=== PATIENT | female | born 2000 | race African-American/Black ===

== ENCOUNTER 2019-04-24 10:45 | Emergency (ER) | payer MEDICAID ==
[2019-04-24] MEDS ORDERED: IBUPROFEN 800 MG TABLET PO ONE (11:25)
--- NOTE | 2019-04-24 11:26 | ER Document Report ---
ED Medical Screen (RME) - General Chief Complaint: Pelvic Pain Stated Complaint: PELVIC PAIN Time Seen by Provider: 04/24/19 11:22 Primary Care Provider: UNRULY DESIR MD [Primary Care Provider] - Follow up as needed Mode of Arrival: Ambulatory Information source: Patient Notes: 18-year-old female with history of lupus presents with complaints of bilateral pelvic pain behind her hip bone and low back pain that started last night. Reports she was in so much pain she fell asleep without taking her amitriptyline. Has not taken anything for pain today. Denies vaginal discharge recently, denies fever vomiting diarrhea. Denies pain with void. Reports she has an IUD in. Reports she has one sexual partner does not use condoms. I have greeted and performed a rapid initial assessment of this patient. A comprehensive ED assessment and evaluation of the patient, analysis of test results and completion of the medical decision making process will be conducted by additional ED providers. Dictation of this chart was performed using voice recognition software; therefore, there may be some unintended grammatical errors. TRAVEL OUTSIDE OF THE [place] IN LAST 30 DAYS: No - Related Data Allergies/Adverse Reactions: morphine [Morphine] Allergy (Verified 04/24/19 11:18) promethazine HCl [From Phenergan] Allergy (Verified 04/24/19 11:18) Past Medical History - Social History Chew tobacco use (# tins/day): No Frequency of alcohol use: Occasional Drug Abuse: None Endocrine Medical History: Reports: Hx Hyperthyroidism - Thyroid functions are being followed at this time but there is no treatment. - Immunizations Immunizations up to date: Yes Hx Diphtheria, Pertussis, Tetanus Vaccination: Yes Physical Exam - Vital signs Vitals: Temp Pulse Resp BP Pulse Ox 98.0 F 82 20 120/79 100 04/24/19 10:56 04/24/19 10:56 04/24/19 10:56 04/24/19 10:56 04/24/19 10:56 Course - Vital Signs Vital signs: Temp Pulse Resp BP Pulse Ox 98.0 F 82 20 120/79 100 04/24/19 10:56 04/24/19 10:56 04/24/19 10:56 04/24/19 10:56 04/24/19 10:56 Doctor's Discharge - Discharge Referrals: UNRULY DESIR MD [Primary Care Provider] - Follow up as needed
[2019-04-24 12:10] LABS: ABSOLUTE EOSINOPHILS # (AUTO) 0.1 10^3/uL (0.0-0.6); ABSOLUTE LYMPHOCYTES (AUTO) 1.8 10^3/uL (0.5-4.7); ABSOLUTE MONOCYTES (AUTO) 0.5 10^3/uL (0.1-1.4); ABSOLUTE NEUT (AUTO) 3.4 10^3/uL (1.7-8.2); BASOPHILS % (AUTO) 0.6 % (0-2); EOSINOPHILS % (AUTO) 1.6 % (0-6); HEMATOCRIT 40.6 % (36.0-47.0); HEMOGLOBIN 13.6 g/dL (12.0-15.5); LYMPHOCYTES % (AUTO) 31.3 % (13-45); MEAN CORPUSCULAR HEMOGLOBIN 29.6 pg (27.0-33.4); MEAN CORPUSCULAR HGB CONC 33.6 g/dL (32.0-36.0); MEAN CORPUSCULAR VOLUME 88 fl (80-97); MONOCYTES % (AUTO) 7.8 % (3-13); PLATELET COUNT 262 10^3/uL (150-450); RED BLOOD COUNT 4.61 10^6/uL (3.72-5.28); RED CELL DISTRIBUTION WIDTH 13.3 % (11.5-14.0); SEGMENTED NEUTROPHILS % (AUTO) 58.7 % (42-78); TOTAL CELLS COUNTED % (AUTO) 100 %; WHITE BLOOD COUNT 5.8 10^3/uL (4.0-10.5)
[2019-04-24 12:32] LABS: ALBUMIN 4.8 g/dL (3.7-5.6); ALKALINE PHOSPHATASE 71 U/L (50-135); ANION GAP 11 (5-19); ASPARTATE AMINO TRANSFERASE 24 U/L (5-30); BILIRUBIN,DIRECT 0.1 mg/dL (0.0-0.4); BILIRUBIN,TOTAL 0.5 mg/dL (0.2-1.3); BLOOD UREA NITROGEN 9 mg/dL (7-20); CALCIUM 9.8 mg/dL (8.4-10.2); CARBON DIOXIDE 27 mmol/L (22-30); CHLORIDE 103 mmol/L (98-107); GLUCOSE 90 mg/dL (75-110); TOTAL PROTEIN 7.9 g/dL (6.3-8.2)
[2019-04-24 12:42] LABS: APPEARANCE,URINE CLEAR; BILIRUBIN,URINE NEGATIVE (NEGATIVE); COLOR,URINE STRAW; GLUCOSE, URINE NEGATIVE (NEGATIVE); KETONES,URINE NEGATIVE (NEGATIVE); LEUKOCYTE ESTERASE,URINE NEGATIVE (NEGATIVE); NITRITE,URINE NEGATIVE (NEGATIVE); PROTEIN,URINE NEGATIVE (NEGATIVE); URINE SPECIFIC GRAVITY 1.003; UROBILINOGEN,URINE NEGATIVE mg/dL (<2.0)
[2019-04-24] MEDS ORDERED: HYDROCODONE/ACETAMINOPHEN 5-325 MG TABLET PO ONE (13:14)
[2019-04-24] MEDS ORDERED: ONDANSETRON 4 MG TAB.RAPDIS PO ONE (13:14)
--- NOTE | 2019-04-24 14:55 | RADIOLOGY REPORT (SQ) ---
EXAM DESCRIPTION: U/S NON OB PEL TV W/DOPPLER COMPLETED DATE/TIME: 04/24/2019 2:34 pm REASON FOR STUDY: pelvic pain/hx cysts COMPARISON: None. TECHNIQUE: Dynamic and static grayscale images acquired of the pelvis via transvaginal approach and recorded on PACS. Additional selected color Doppler and spectral images recorded. LIMITATIONS: None. FINDINGS: UTERUS: The uterus measures 7.9 x 5.1 x 3.6 cm. The echotexture of the myometrium is homo geneous. ENDOMETRIAL STRIPE: There is an IUD in place. CERVIX: No nabothian cysts. RIGHT OVARY AND DOPPLER: The right ovary measures 4.2 x 3.1 x 2.7 cm. There is a cyst or dominant fo llicle in the right ovary that measures 2.1 x 1.7 x 1.7 cm. On color Doppler there is intact arteria l flow and venous outflow within the ovarian stroma. LEFT OVARY AND DOPPLER: The left ovary measures 4.7 x 2.5 x 1.7 cm. On Doppler there is intact arter ial inflow and venous outflow within the ovarian stroma. FREE FLUID: Moderate amount of free fluid. OTHER: No other finding. IMPRESSION: 1. Moderate amount of free fluid in the pelvis; the fluid appears simple. 2. IUD in place and in proper position. 3. Dominant follicle in the left ovary. No evidence of ovarian torsion. TECHNICAL DOCUMENTATION: JOB ID: [id number] [employer]- All Rights Reserved Rev-12/16 Reading location - IP/workstation name: [email or web address]
--- NOTE | 2019-04-24 15:00 | ER Document Report ---
ED General - General Chief Complaint: Pelvic Pain Stated Complaint: PELVIC PAIN Time Seen by Provider: 04/24/19 11:15 Primary Care Provider: UNRULY DESIR MD [ACTIVE STAFF] - Follow up as needed Mode of Arrival: Ambulatory Information source: Patient TRAVEL OUTSIDE OF THE [place] IN LAST 30 DAYS: No - HPI Notes: Patient presents with bilateral lower abdominal pelvic pain that started yesterday evening. It is constant. It is moderate. It is crampy in nature. It goes to the lower back. She states it feels similar to when she had a ruptured ovarian cyst in the past. She denies any vaginal discharge or bleeding. She states she has not read by cyclic transmitted disease. She has had no vomiting fever or rashes. The pain is worse with movement and better with rest. - Related Data Allergies/Adverse Reactions: morphine [Morphine] Allergy (Verified 04/24/19 11:18) promethazine HCl [From Phenergan] Allergy (Verified 04/24/19 11:18) Past Medical History - General Information source: Patient - Social History Smoking Status: Never Smoker Chew tobacco use (# tins/day): No Frequency of alcohol use: Occasional Drug Abuse: None Family History: Malignancy, Other - FATHER WITH COLON CA Patient has suicidal ideation: No Patient has homicidal ideation: No Endocrine Medical History: Reports: Hx Hyperthyroidism - Thyroid functions are being followed at this time but there is no treatment. - Immunizations Immunizations up to date: Yes Hx Diphtheria, Pertussis, Tetanus Vaccination: Yes Review of Systems - Review of Systems Constitutional: denies: Chills, Fever Cardiovascular: denies: Palpitations, Dyspnea Respiratory: denies: Cough, Short of breath -: Yes All other systems reviewed and negative Physical Exam - Vital signs Vitals: Temp Pulse Resp BP Pulse Ox 98.0 F 82 20 120/79 100 04/24/19 10:56 04/24/19 10:56 04/24/19 10:56 04/24/19 10:56 04/24/19 10:56 Interpretation: Normal - General General appearance: Appears well, Alert - HEENT Head: Normocephalic, Atraumatic Eyes: Normal Pupils: PERRL - Respiratory Respiratory status: No respiratory distress Chest status: Nontender Breath sounds: Normal Chest palpation: Normal - Cardiovascular Rhythm: Regular Heart sounds: Normal auscultation Murmur: No - Abdominal Inspection: Normal Distension: No distension Bowel sounds: Normal Tenderness: Tender - Bilateral lower quadrants are tender to palpation. No rebound or guarding. Organomegaly: No organomegaly - Back Back: Normal, Nontender - Extremities General upper extremity: Normal inspection, Nontender, Normal color, Normal ROM, Normal temperature General lower extremity: Normal inspection, Nontender, Normal color, Normal ROM, Normal temperature, Normal weight bearing. No: Jayde's sign - Neurological Neuro grossly intact: Yes Cognition: Normal Orientation: AAOx4 Sumeet Coma Scale Eye Opening: Spontaneous Sumeet Coma Scale Verbal: Oriented Hostetter Coma Scale Motor: Obeys Commands Hostetter Coma Scale Total: 15 Speech: Normal Motor strength normal: LUE, RUE, LLE, RLE Sensory: Normal - Psychological Associated symptoms: Normal affect, Normal mood - Skin Skin Temperature: Warm Skin Moisture: Dry Skin Color: Normal Course - Re-evaluation Re-evalutation: 04/24/19 14:58 Ultrasound shows free fluid which would be consistent with a ruptured cyst. Patient states this does feel like a previous ruptured cyst. Her tenderness is not such that I feel she has a surgical abdomen. She has no white count or fever. I do not feel that her work-up is consistent with appendicitis. She will however, be given abdominal pain precautions. - Vital Signs Vital signs: Temp Pulse Resp BP Pulse Ox 98.0 F 82 20 120/79 100 04/24/19 10:56 04/24/19 10:56 04/24/19 10:56 04/24/19 10:56 04/24/19 10:56 - Laboratory Result Diagrams: 04/24/19 11:50 04/24/19 11:50 - Diagnostic Test Radiology reviewed: Image reviewed, Reports reviewed Discharge - Discharge Clinical Impression: Ruptured ovarian cyst Condition: Stable Disposition: HOME, SELF-CARE Instructions: Pelvic Pain ([facility]) Additional Instructions: Please follow-up with either your primary care doctor or your FURNITURE MOVER as soon as possible Prescriptions: Hydrocodone/Acetaminophen [Iraan 5-325 mg Tablet] 1 tab PO Q6 PRN 3 Days #12 tablet PRN Reason: Forms: Parent Work Note Referrals: UNRULY DESIR MD [ACTIVE STAFF] - Follow up in 3-5 days
[2019-04-24 15:03] LABS: CHLAM PCR NOT DETECTED (NOT DETECT)
[2019-04-24 15:33] VITALS: BP 112/70
== END 2019-04-24 15:31 | disposition home or self-care (01) ==
LOC: ER 10:45
DX: N83.201 Unspecified ovarian cyst, right side (principal); R10.2 Pelvic and perineal pain; M54.5 Low back pain; R10.813 Right lower quadrant abdominal tenderness; R10.814 Left lower quadrant abdominal tenderness; R18.8 Other ascites; Z88.5 Allergy status to narcotic agent; Z88.8 Allergy status to other drugs, medicaments and biological substances
CPT/HCPCS: 99284; 36415; 85025; 81025; 80053; 81001; 87491; 87591; 76830; 93976; J3490; S0119

== ENCOUNTER 2020-01-27 12:53 | Outpatient (CLI) | payer MEDICAID ==
[2020-01-27 13:48] LABS: BACTERIA (WET MOUNT) 4+ BACTERIA SEEN; EPITHELIALS (WET MOUNT) 3+ EPITHELIALS SEEN; T.VAGINALIS (WET MOUNT) NO TRICHOMONAS SEEN; WBCS (WET MOUNT) 2+ WBCS SEEN; YEAST (WET MOUNT) NO YEAST SEEN
[2020-01-27 13:48] LABS: APPEARANCE,URINE CLEAR; BILIRUBIN,URINE NEGATIVE (NEGATIVE); COLOR,URINE COLORLESS; GLUCOSE, URINE NEGATIVE (NEGATIVE); KETONES,URINE NEGATIVE (NEGATIVE); LEUKOCYTE ESTERASE,URINE NEGATIVE (NEGATIVE); NITRITE,URINE NEGATIVE (NEGATIVE); PROTEIN,URINE NEGATIVE (NEGATIVE); UROBILINOGEN,URINE NEGATIVE mg/dL (<2.0)
[2020-01-27 14:01] LABS: URINE AMPHETAMINES SCREEN NEGATIVE; URINE BARBITURATES SCREEN NEGATIVE; URINE BENZODIAZEPINES SCREEN NEGATIVE; URINE COCAINE SCREEN NEGATIVE; URINE MARIJUANA (THC) SCREEN NEGATIVE; URINE METHADONE SCREEN NEGATIVE; URINE PHENCYCLIDINE SCREEN NEGATIVE
[2020-01-27] MEDS ORDERED: HYDROXYZINE PAMOATE 50 MG CAPSULE PO ONE (14:16)
[2020-01-27] MEDS ORDERED: ACETAMINOPHEN 325 MG TABLET PO ONE (14:16)
[2020-01-27] MEDS ORDERED: HYDROXYZINE PAMOATE 50 MG CAPSULE ONE (14:21)
[2020-01-27] MEDS ORDERED: ACETAMINOPHEN 325 MG TABLET ONE (14:21)
--- NOTE | 2020-01-27 14:27 | RADIOLOGY REPORT (SQ) ---
EXAM DESCRIPTION: U/S OB LIMITED IMAGES COMPLETED DATE/TIME: 01/27/2020 1:48 pm REASON FOR STUDY: cervical length Cramping. COMPARISON: None. TECHNIQUE: Limited transabdominal grayscale ultrasound for evaluation of specific requested obstetri marely parameters. LIMITATIONS: None. FINDINGS: CERVICAL LENGTH: 3.2 cm. Appears closed by transabdominal technique. TASHA: 7.3 cm. LVP: 3.8 x 2.1 cm FHR: 124 beats per minute. PRESENTATION: Vertex. PLACENTA: Anterior ANATOMY: Not assessed OTHER: EGA: 24 weeks 6 days. IMPRESSION: LIMITED OBSTETRICAL ULTRASOUND WITH MEASURED PARAMETERS DELINEATED ABOVE. Trimester of : Second trimester - 13 weeks 1 day to 27 weeks 6 days. TECHNICAL DOCUMENTATION: JOB ID: [id number] [employer]- All Rights Reserved Reading location - IP/workstation name: [email or web address]
[2020-01-27 15:13] LABS: CHLAM PCR NOT DETECTED (NOT DETECT)
== END 2020-01-27 15:34 | disposition home or self-care (01) ==
LOC: LC 12:53
PROVIDERS: ATTEND Obstetrics & Gynecology Gynecology
DX: O26.892 Other specified pregnancy related conditions, second trimester (principal); Z3A.26 26 weeks gestation of pregnancy
CPT/HCPCS: 87210; 81001; 80307; 87491; 87591; 76815; 59899; Q0114; J3490 ×2

== ENCOUNTER 2020-02-21 12:48 | Outpatient (CLI) | payer MEDICAID ==
[2020-02-21 13:31] LABS: APPEARANCE,URINE CLEAR; BILIRUBIN,URINE NEGATIVE (NEGATIVE); COLOR,URINE STRAW; GLUCOSE, URINE NEGATIVE (NEGATIVE); KETONES,URINE NEGATIVE (NEGATIVE); LEUKOCYTE ESTERASE,URINE NEGATIVE (NEGATIVE); NITRITE,URINE NEGATIVE (NEGATIVE); PROTEIN,URINE NEGATIVE (NEGATIVE); URINE SPECIFIC GRAVITY 1.006; UROBILINOGEN,URINE NEGATIVE mg/dL (<2.0)
[2020-02-21 13:54] LABS: URINE AMPHETAMINES SCREEN NEGATIVE; URINE BARBITURATES SCREEN NEGATIVE; URINE BENZODIAZEPINES SCREEN NEGATIVE; URINE COCAINE SCREEN NEGATIVE; URINE MARIJUANA (THC) SCREEN NEGATIVE; URINE METHADONE SCREEN NEGATIVE; URINE PHENCYCLIDINE SCREEN NEGATIVE
== END 2020-02-21 13:58 | disposition home or self-care (01) ==
LOC: LC 12:48
PROVIDERS: ATTEND Obstetrics & Gynecology Gynecology
DX: Z34.83 Encounter for supervision of other normal pregnancy, third trimester (principal); Z3A.28 28 weeks gestation of pregnancy
CPT/HCPCS: 59025; 81001; 80307; Q0114

== ENCOUNTER 2020-03-01 19:35 | Outpatient (CLI) | payer MEDICAID ==
[2020-03-01 20:24] LABS: APPEARANCE,URINE CLEAR; BILIRUBIN,URINE NEGATIVE (NEGATIVE); COLOR,URINE STRAW; GLUCOSE, URINE NEGATIVE (NEGATIVE); KETONES,URINE NEGATIVE (NEGATIVE); LEUKOCYTE ESTERASE,URINE NEGATIVE (NEGATIVE); NITRITE,URINE NEGATIVE (NEGATIVE); PROTEIN,URINE NEGATIVE (NEGATIVE); URINE SPECIFIC GRAVITY 1.002; UROBILINOGEN,URINE NEGATIVE mg/dL (<2.0)
[2020-03-01 20:37] LABS: URINE AMPHETAMINES SCREEN NEGATIVE; URINE BARBITURATES SCREEN NEGATIVE; URINE BENZODIAZEPINES SCREEN NEGATIVE; URINE COCAINE SCREEN NEGATIVE; URINE MARIJUANA (THC) SCREEN NEGATIVE; URINE METHADONE SCREEN NEGATIVE; URINE PHENCYCLIDINE SCREEN NEGATIVE
[2020-03-01] MEDS ORDERED: RINGERS SOLUTION,LACTATED 1,000 ML IV ONE (20:41)
--- NOTE | 2020-03-01 22:04 | RADIOLOGY REPORT (SQ) ---
US PELVIS HISTORY: Pelvic pain. COMPARISON: 01/27/2020 TECHNIQUE: Grayscale, color Doppler, and spectral Doppler ultrasound images of the pelvis were obtained. FINDINGS: There is a single intrauterine gestation in vertex presentation. Heart rate is 147 bpm. TASHA is 12.5 cm. Cervix is 3 cm and is closed. Placenta is anterior. Estimated gestational age is 30.6 days. SHUKRI is 05/04/2020. Estimated weight is 1613 g +/- 239 g. IMPRESSION: Single live IUP as above.
[2020-03-01] MEDS ORDERED: HYDROXYZINE PAMOATE 50 MG CAPSULE PO ONE (22:44)
[2020-03-01] MEDS ORDERED: HYDROXYZINE PAMOATE 50 MG CAPSULE ONE (22:46)
== END 2020-03-01 23:16 | disposition home or self-care (01) ==
LOC: LC 19:35
PROVIDERS: ATTEND Obstetrics & Gynecology Gynecology
DX: O47.03 False labor before 37 completed weeks of gestation, third trimester (principal); Z3A.29 29 weeks gestation of pregnancy
CPT/HCPCS: 59899; 81001; 80307; 76815; J3490

== ENCOUNTER 2020-03-02 21:58 | Outpatient (CLI) | payer MEDICAID ==
[2020-03-02 22:27] LABS: APPEARANCE,URINE CLEAR; BILIRUBIN,URINE NEGATIVE (NEGATIVE); COLOR,URINE STRAW; GLUCOSE, URINE NEGATIVE (NEGATIVE); KETONES,URINE NEGATIVE (NEGATIVE); LEUKOCYTE ESTERASE,URINE TRACE (NEGATIVE); NITRITE,URINE NEGATIVE (NEGATIVE); PROTEIN,URINE NEGATIVE (NEGATIVE); URINE SPECIFIC GRAVITY 1.006; UROBILINOGEN,URINE NEGATIVE mg/dL (<2.0)
[2020-03-02 22:48] LABS: URINE AMPHETAMINES SCREEN NEGATIVE; URINE BARBITURATES SCREEN NEGATIVE; URINE BENZODIAZEPINES SCREEN NEGATIVE; URINE COCAINE SCREEN NEGATIVE; URINE MARIJUANA (THC) SCREEN NEGATIVE; URINE METHADONE SCREEN NEGATIVE; URINE PHENCYCLIDINE SCREEN NEGATIVE
== END 2020-03-02 23:16 | disposition home or self-care (01) ==
LOC: LC 21:58
PROVIDERS: ATTEND Obstetrics & Gynecology Gynecology
DX: O47.03 False labor before 37 completed weeks of gestation, third trimester (principal); Z3A.29 29 weeks gestation of pregnancy; Z88.6 Allergy status to analgesic agent; Z88.8 Allergy status to other drugs, medicaments and biological substances
CPT/HCPCS: 80307; 81001

== ENCOUNTER 2020-04-18 22:54 | Inpatient (IN) | payer MEDICAID ==
[2020-04-18] MEDS ORDERED: AMMONIA INHALANTS 10 AMPUL/BOX IH ONE (23:01)
[2020-04-18 23:57] LABS: ABSOLUTE EOSINOPHILS # (AUTO) 0.1 10^3/uL (0.0-0.6); ABSOLUTE LYMPHOCYTES (AUTO) 2.3 10^3/uL (0.5-4.7); ABSOLUTE MONOCYTES (AUTO) 0.8 10^3/uL (0.1-1.4); BASOPHILS % (AUTO) 0.4 % (0-2); EOSINOPHILS % (AUTO) 0.8 % (0-6); HEMATOCRIT 34.5 % (36.0-47.0); HEMOGLOBIN 12.6 g/dL (12.0-15.5); LYMPHOCYTES % (AUTO) 24.8 % (13-45); MEAN CORPUSCULAR HEMOGLOBIN 31.9 pg (27.0-33.4); MEAN CORPUSCULAR HGB CONC 36.4 g/dL (32.0-36.0); MEAN CORPUSCULAR VOLUME 88 fl (80-97); MONOCYTES % (AUTO) 8.9 % (3-13); PLATELET COUNT 264 10^3/uL (150-450); RED BLOOD COUNT 3.94 10^6/uL (3.72-5.28); SEGMENTED NEUTROPHILS % (AUTO) 65.1 % (42-78); TOTAL CELLS COUNTED % (AUTO) 100 %; WHITE BLOOD COUNT 9.3 10^3/uL (4.0-10.5)
[2020-04-19 00:11] LABS: ALBUMIN 3.5 g/dL (3.5-5.0); ALKALINE PHOSPHATASE 179 U/L (38-126); ANION GAP 6 (5-19); ASPARTATE AMINO TRANSFERASE 20 U/L (14-36); BILIRUBIN,DIRECT 0.2 mg/dL (0.0-0.4); BILIRUBIN,TOTAL 0.4 mg/dL (0.2-1.3); BLOOD UREA NITROGEN 8 mg/dL (7-20); CALCIUM 9.4 mg/dL (8.4-10.2); CARBON DIOXIDE 25 mmol/L (22-30); CHLORIDE 103 mmol/L (98-107); GLUCOSE 106 mg/dL (75-110); TOTAL PROTEIN 6.2 g/dL (6.3-8.2); URIC ACID 4.8 mg/dL (2.5-6.2)
[2020-04-19 00:28] LABS: APPEARANCE,URINE SLIGHTLY-CLOUDY; BILIRUBIN,URINE NEGATIVE (NEGATIVE); COLOR,URINE YELLOW; GLUCOSE, URINE NEGATIVE (NEGATIVE); KETONES,URINE NEGATIVE (NEGATIVE); LEUKOCYTE ESTERASE,URINE NEGATIVE (NEGATIVE); NITRITE,URINE NEGATIVE (NEGATIVE); PROTEIN,URINE NEGATIVE (NEGATIVE); URINE SPECIFIC GRAVITY 1.015
[2020-04-19 00:44] LABS: URINE AMPHETAMINES SCREEN NEGATIVE; URINE BARBITURATES SCREEN NEGATIVE; URINE BENZODIAZEPINES SCREEN NEGATIVE; URINE COCAINE SCREEN NEGATIVE; URINE MARIJUANA (THC) SCREEN NEGATIVE; URINE METHADONE SCREEN NEGATIVE; URINE PHENCYCLIDINE SCREEN NEGATIVE
[2020-04-19 00:48] LABS: UR PRO/CREAT RATIO RESULT 0.1 mg/mg (0.0-0.2); URINE PROTEIN 10.6 mg/dL (<12)
--- NOTE | 2020-04-19 00:56 | RADIOLOGY REPORT (SQ) ---
EXAM DESCRIPTION: US LIMITED COMPLETED DATE/TME: 04/18/2020 00:00 CLINICAL HISTORY: 19 years, Female, s/p passing out several times yesterday, r/o abrup COMPARISON: 03/01/2020 ultrasound TECHNIQUE: Limited OB ultrasound LIMITATIONS: None. FINDINGS: Single, live intrauterine gestation in the cephalic presentation. The placenta is anterior in location with a grade 2 echotexture. Prominent vascularity adjacent to the placenta. Amniotic fluid index 11.4 cm. heart tones 132 bpm. Current ultrasound age 36 weeks 1 day. Estimated weight 6 lbs. 1 oz. Ratios: HC to a.c.: 1.04 FL to BPD: 78.5 FL to HC: 21.8 FL to a.c.: 22.7. A detailed anatomic assessment was not performed at this time IMPRESSION: Single live IUP as above. Nonemergent follow-up recommended. Ultrasound age 36 weeks 1 day. No sonographic evidence for placental abruption or placental lakes formation. Prominent vascularity along the posterior margin of the placenta is present copyright 2011 [employer]- All Rights Reserved
[2020-04-19 01:09] LABS: INTERNATIONAL RATION (INR) 0.94; PROTHROMBIN TIME 12.8 SEC (11.4-15.4)
[2020-04-19 01:10] LABS: FIBRINOGEN 408 mg/dL (209-497); PARTIAL THROMBOPLASTIN TIME 26.2 SEC (23.5-35.8)
[2020-04-19] MEDS ORDERED: RINGERS SOLUTION,LACTATED 1,000 ML IV ONE (01:30)
[2020-04-19] MEDS ORDERED: PENICILLIN G POTASSIUM 5,000,000 UNIT in DEXTROSE 5%-WATER 100 ML IV ONE (01:30)
[2020-04-19] MEDS ORDERED: RINGERS SOLUTION,LACTATED 1,000 ML IV PRN (01:30)
[2020-04-19] MEDS ORDERED: FENTANYL CITRATE INJ/PF 100 MCG/2 ML AMPUL IV ONE (01:32)
[2020-04-19] MEDS ORDERED: BETAMET ACET/BETAMET NA INJ 6 MG/1 ML IM ONE (01:32)
[2020-04-19] MEDS ORDERED: OXYTOCIN 10 UNIT/ML VIAL ONE (01:37)
[2020-04-19] MEDS ORDERED: MISOPROSTOL 0.2 MG TABLET ONE (01:38)
[2020-04-19] MEDS ORDERED: BETAMET ACET/BETAMET NA INJ 6 MG/1 ML ONE (01:38)
[2020-04-19] MEDS ORDERED: EPHEDRINE SULFATE INJ 50 MG/1 ML AMPULE ONE (01:39)
[2020-04-19] MEDS ORDERED: FENTANYL/BUPIVACAINE/NS/PF 0 MCG/0 ML RTUINJ EPI ONE (01:39)
[2020-04-19] MEDS ORDERED: LIDOCAINE 1% INJ-PF (10 MG/ML) 30 ML SDV ONE (01:39)
[2020-04-19] MEDS ORDERED: OXYTOCIN/0.9 % SODIUM CHLORIDE 30 UNIT/500 ML RTUINJ ONE (01:39)
[2020-04-19] MEDS ORDERED: PENICILLIN G-K 5 MILLION UNIT VIAL ONE (01:40)
[2020-04-19] MEDS ORDERED: ROPIVACAINE HCL 0.2% INJ/PF (2 MG/ML) 20 ML SDV ONE (01:40)
[2020-04-19] MEDS ORDERED: FENTANYL CITRATE INJ/PF 100 MCG/2 ML AMPUL ONE (01:41)
--- NOTE | 2020-04-19 02:09 | Admission Physical ---
Datetime Report Generated by CPN: 04/19/2020 02:09 CURRENT ADMISSION Chief Complaint: Uterine Contractions Indication for Induction: Not Applicable Admit Impression : , Intrauterine ; Active Labor; Intact Membranes Admit Plan: Admit to Unit; Initiate Labor Protocol ALLERGIES Medication Allergies: Yes Medication Allergies: promethazine HCl (03/01/2020); morphine (03/01/2020) Latex: No Latex Allergies OBSTETRICAL HISTORY EDC: 05/12/2020 00:00 : 3 Para: 1 Term: 0 : 1 SAB: 0 IAB: 1 Ectopic: 0 Livin Cesareans: 0 VBACs: 0 Multiple Births: 0 Gestational Diabetes: No Rh Sensitization: No Incompetent Cervix: No MEENAKSHI: No Infertility: No ART Treatment: No Uterine Anomaly: No IUGR: No Hx Previous C/S: No Macrosomia: No Hx Loss/Stillborn: No PIH: No Hx : No Placenta Previa/Abruption: No Depression/PP Depression: Yes (Annotations: Data stored by CPN on behalf of user) PTL/PROM: Yes Post Hemorrhage: No Current Procedures: Ultrasound Obstetrical History Comments: 2014 8wk EAB 2014 34wk vaginal delivery, epidural, PTD G3- current SEE RECORDS Alcohol: No Marijuana : No Cocaine: No Other Illicit Drugs: No Cigarettes: Never Smoker. [id number] Advised to Stop: No MEDICAL HISTORY Diabetes: No Blood Transfusion: No Pulmonary Disease (Asthma, TB): No Breast Disease: No Hypertension: No Materials Director Surgery: No Heart Disease: No Hosp/Surgery: Yes Autoimmune Disorder: Yes Anesthetic Complications: No Kidney Disease: No Abnormal Pap Smear: No Neuro/Epilepsy: No Psychiatric Disorders: Yes Other Medical Diseases: Yes Hepatitis/Liver Disease: No Significant Family History: No Varicosities/Phlebitis: No Trauma/Violence : No Thyroid Dysfunction: No Medical History Comments: ovarian cysts, lupus, fibromyalgia, depression, anorexia INFECTIOUS HISTORY Gonorrhea: No Genital Herpes: No Chlamydia: No Tuberculosis: No Syphilis: No Hepatitis: No HIV/AIDS Exposure: No Rash or Viral Illness: No HPV: No PHYSICAL EXAM General: Normal HEENT: Normal Neurologic: Normal Thyroid: Deferred Heart: Normal Lungs: Deferred Breast: Normal Back: Normal Abdomen: Normal Genitourinary Exam: Normal Extremities: Normal DTRs: Normal Pelvic Type: Adequate Vital Signs: Reviewed VAGINAL EXAM Dilatation: 4 Effacement: 90 Station: -2 Contraction Comments: q 1-2 MEMBRANES Membranes: Intact FETUS A EGA: 36.5 Monitoring: External US FHR- Baseline: 120 Variability: Moderate 6-25bpm Accelerations: 10X10 Decelerations: None FHR Category: Category II Presentation: Vertex Admit Comment: 19yo (h/o EAB, h/o PTL/PTD at 34wks). Declined Prometrium and 17OHP for h/o delivery. She was initially followed at [facility] and [facility] then transferred at 23wks to [facility]. On amitryptilline - has been counseled on risk - uses this to help control fibromyalgia flares. H/o SLE/cutaneous lupus - recent JC negative - reportedly had bx at [facility] and started seeing rheum (no longer seeing anyone and on no meds) - JC in 2012 and at [facility] recently negative. Fibromyalgia. Depression/Anxiety. She reports syncopal episodes have caused her to be bedridden. W/u for syncopal episodes per notes extensive and conculsion appears to be vasovagal syncope. h/o anorexia and is followed by cottonseed meat presser. GBS appears to have been done - no result in chart. Will give PCN for prophy. She was recently admitted to [facility] for PTL and it appears that she was given at least one does of steroids on 04/10. Will repeat today. Admit and likely anticipate delivery as patient with now more regular ctx and increased pain and noted cervical change. SHe is requesting pain meds. Will notify NICU and Peds. Notify anesthesia of patient reques. PLANS FOR LABOR AND DELIVERY Labor and Delivery: None Pain Management: Medications; Epidural Feeding Preference: Both Benefit of Breast Feed Discussed: Yes Circumcision: N/A INFORMED CONSENT Informed Consent Obtained: Vaginal Delivery; Risks, Benefits and Alternatives Discussed Signature: with User ID: [email or web address]
[2020-04-19] MEDS ORDERED: DIBUCAINE 1% OINTMENT 28 GM TP PRN (02:57)
[2020-04-19] MEDS ORDERED: BENZOCAINE/MENTHOL AEROSOL SPRAY 56 ML TOP PRN (02:57)
[2020-04-19] MEDS ORDERED: OXYTOCIN/0.9 % SODIUM CHLORIDE 30 UNIT/500 ML RTUINJ IV PRN (02:57)
[2020-04-19] MEDS ORDERED: ACETAMINOPHEN 325 MG TABLET PO PRN (02:57)
[2020-04-19] MEDS ORDERED: ACETAMINOPHEN WITH CODEINE #3 TABLET PO PRN (02:57)
[2020-04-19] MEDS ORDERED: NA PHOS,M-B/NA PHOS,DI-BA (ADULT) 133 ML ENEMA PR PRN (02:57)
[2020-04-19] MEDS ORDERED: PSEUDOEPHEDRINE HCL 30 MG TABLET PO PRN (02:57)
[2020-04-19] MEDS ORDERED: MEASLES,MUMPS&RUBELLA VACC/PF 0.5 ML VIAL SUBCUT PRN (02:57)
[2020-04-19] MEDS ORDERED: MAGNESIUM HYDROXIDE SUSP 30 ML UDCUP PO PRN (02:57)
[2020-04-19] MEDS ORDERED: DIPHENHYDRAMINE HCL 25 MG CAPSULE PO PRN (02:57)
[2020-04-19] MEDS ORDERED: GLYCERIN/WITCH HAZEL LEAF 1 EACH MED..WIPE TP PRN (02:57)
[2020-04-19] MEDS ORDERED: DIPH/PERTUSS(ACELL)/TETANUS VAC/PF 0.5 ML SYR (>=10YO) IM PRN (02:57)
[2020-04-19] MEDS ORDERED: ZOLPIDEM TARTRATE 5 MG TABLET PO PRN (02:57)
[2020-04-19 03:56] LABS: RHOGAM DOSE INDICATED 0 VIAL(S)
--- NOTE | 2020-04-19 04:32 | Delivery Summary ---
Del Sum A-C Datetime Report Generated by CPN: 04/19/2020 04:32 DELIVERY PERSONNEL DELIVERY PERSONNEL: [id number] Delivery Doctor:: Va Lao MD ASSEMBLER FINGER BUFFS:: Torsten Newsome CRNA Labor and Delivery Nurse:: Adela Cote RNjava technical manager Nurse:: Lakesha Thorne RN Nursery Nurse:: Magda Stephenson RN MATERNAL INFORMATION Delivery Anesthesia: Epidural Medications During Delivery: fentanyl during labor Medications After Delivery: Pitocin 30 Units in 500ml NS/D5W; Cytotec 1000mcg Per Rectum/Vagina Delivery QBL: 100 Maternal Complications: Precipitous Labor (<3hrs); Other Other Maternal Complications: suspect occult abruption Complication Details: labor Provider Comments: VFI delivered in DANII presentation. Blood and clots noted after delivery of head - possible partial or occult abruption., No nuchal cord. Shoulders and body delivered without difficulty. Cord doubly clamped and cut. to maternal abdomen for NRP. Placenta delivered intact spontaneously. FF at U. no perineal lacerations. Mother and baby stable upon provider leaving the room. Cytotec 1000mcg given [place] for mild atony after I left the room. LABOR SUMMARY EDC: 05/12/2020 00:00 No. Babies in Womb: 1 Attempted: No Labor Anesthesia: Epidural LABOR INFORMATION Reason for Induction: Not Applicable Onset of Labor: 04/18/2020 19:30 Complete Dilatation: 04/19/2020 02:38 Oxytocin: N/A Group B Beta Strep: unknown Antibiotics # of Doses: 1 Antibiotics Time of Last Dose: 04/19/2020 01:52 Name of Antibiotic Given: PCN 5 million units Steroids Given: Full Course; > 24 Hours before Delivery Reason Steroids Not Administered: Imminent Delivery MEMBRANES Membranes Rupture Method: Spontaneous Rupture of Membranes: 04/19/2020 02:00 Length of Rupture (hr): 0.70 Amniotic Fluid Color: Clear Amniotic Fluid Amount: Small Amniotic Fluid Odor: Normal STAGES OF LABOR Stage 1 hr: 7 Stage 1 min: 8 Stage 2 hr: 0 Stage 2 min: 4 Stage 3 hr: 0 Stage 3 min: 3 Total Time in Labor hr: 7 Total Time in Labor min: 15 VAGINAL DELIVERY Episiotomy: None Laceration #1: None Laceration Extension #1: N/A Laceration Repair: Not Applicable Sponge Count Correct: Yes Sharps Count Correct: Yes CSECTION DELIVERY Primary Indication: N/A Secondary Indication: N/A CSection Incidence: N/A Labor: N/A Elective: N/A CSection Incision: N/A BABY A INFORMATION Infant Delivery Date/Time: 04/19/2020 02:42 Method of Delivery: Vaginal Nurse Controlled Delivery: No Born in Route : No : N/A Forceps: N/A Vacuum Extraction: N/A Shoulder Dystocia : No PRESENTATION/POSITION BABY A Presentation: Cephalic Cephalic Presentation: Vertex Vertex Position: Left Occipital Anterior Breech Presentation: N/A PLACENTA INFORMATION BABY A Placenta Delivery Time : 04/19/2020 02:45 Placenta Method of Delivery: Spontaneous Placenta Status: Delivered SCORES BABY A Heart Rate 1 min: >100 bpm Resp Effort 1 min: Good Cry Reflex Irritability 1 min: Cough or Sneeze or Pulls Away Muscle Tone 1 min: Active Motion Color 1 min: Body [place], Extremities Blue Resuscitation Effort 1 min: N/A SCORE 1 MIN: 9 Heart Rate 5 min: >100 bpm Resp Effort 5 min: Good Cry Reflex Irritability 5 min: Cough or Sneeze or Pulls Away Muscle Tone 5 min: Active Motion Color 5 min: Body [place], Extremities Blue Resuscitation Effort 5 min: N/A SCORE 5 MIN: 9 INFORMATION BABY A Gestational Age at Delivery: 36.5 Gestational Status: Late - 34- 36.6 Weeks Infant Outcome : Liveborn Infant Condition : Stable Sex: Female IDENTIFICATION BABY A Infant Verification Date/Time: 04/19/2020 03:26 ID Band Number: [id number] Mother's Name Verified: Yes Infant RN Verifying Infant: SOPHIA Lancaster Additional Verifying Personnel: SOPHIA Dumont WEIGHT/LENGTH BABY A Birthweight (gm): 3149 Infant Weight (lb): 6 Weight (oz): 15 Length (in): 20.00 Infant Length (cm): 50.80 CORD INFORMATION BABY A No. Cord Vessels: 3 Nuchal Cord : N/A Cord Blood Taken: Yes-For Eval (Mom's Blood Type - or O+) Infant Suction: None ASSESSMENT BABY A Skin to Skin: Yes BABY B INFORMATION : N/A SIGNATURES Signature: with User ID: [email or web address]
--- NOTE | 2020-04-19 04:32 | Birth Certificate Data ---
Cert Data Datetime Report Generated by CPN: 04/19/2020 04:32 CERTIFICATE DATA 47a. Care: Yes (01/27/2020 12:54:Adela Cote RN) 47b. Date of First Visit: 09/18/2019 00:00 (01/27/2020 12:54:Adela Cote RN) 47c. Date of Last Visit: 04/16/2020 00:00 (01/27/2020 12:54:Adela Cote RN) 47d. Number of Visits: 16 (01/27/2020 12:54:Adela Cote RN) 48a. Number of Prev Live Births: 1 (01/27/2020 12:54:Adela Cote RN) 48b. Now Livin (01/27/2020 12:54:Valerie Christopher RN) 48c. Live Births Now : 0 (01/27/2020 12:54:QS system process) 48e. Losses: 1 (01/27/2020 12:54:Adela Cote RN) RISK FACTORS IN THIS 49a. Diabetes: No (01/27/2020 12:54:Adela Cote RN) 49b. Hypertension: No (01/27/2020 12:54:Adela Cote RN) 49c. Previous Births: 1 (01/27/2020 12:54:Valerie Christopher RN) 49d. Stillborns: No (01/27/2020 12:54:Michelle Pratt RN) 49d. IUGR: No (01/27/2020 12:54:Adela Cote RN) 49e. Infertility Treatment: No (01/27/2020 12:54:Adela Cote RN) 49f. Previous Cesareans: 0 (01/27/2020 12:54:Valerie Christopher RN) Mother's Height 50b. Height Inches: 65 (01/27/2020 13:21:QS system process) Mother's Weight 51a. Pre- Weight (lbs): 130 (01/27/2020 12:54:Valerie Christopher RN) 51b. Weight at Delivery (lbs): 143 (03/02/2020 22:10:QS system process) Infections Present/Treated 53a. Gonorrhea: No (01/27/2020 12:54:Adela Cote RN) Results this Hospital Visit : Negative (01/27/2020 12:54:Valerie Christopher RN) 53b. Syphilis: No (01/27/2020 12:54:Adela Cote RN) 53c. Chlamydia: No (01/27/2020 12:54:Adela Cote RN) Results this Hospital Visit: Negative (01/27/2020 12:54:Valerie Christopher RN) 53d. Hepatitis B: No (01/27/2020 12:54:Adela Cote RN) Results this Hospital Visit: Negative (01/27/2020 12:54:Adela Cote RN) 53h. Mother Tested for HBsAG: Yes (01/27/2020 12:54:Adela Cote RN) 53i. Date Tested: 10/02/2019 00:00 (01/27/2020 12:54:HOUSTON Matos 53j. Test Result: Negative (01/27/2020 12:54:Adela Cote RN) Obstetric Procedures 54a, b, c. Obstetric Procedures: Ultrasound (01/27/2020 12:54:Valerie Christopher RN) Cigarette Smoking Cigarette Smoking: Never Smoker. [id number] (01/27/2020 12:54:Adela Cote RN) 55a. 3 Months Before Preg - Ci (01/27/2020 12:54:Adela Cote RN) 55a. Packs: 0 (01/27/2020 12:54:Adela Cote RN) 55b. 1st Trimester of Preg- Ci (01/27/2020 12:54:Adela Cote RN) 55b. Packs: 0 (01/27/2020 12:54:Adela Cote RN) 55c. 2nd Trimester of Preg- Ci (01/27/2020 12:54:Adela Cote RN) 55c. Packs: 0 (01/27/2020 12:54:Adela Cote RN) 55d. 3rd Trimester of Preg- Ci (01/27/2020 12:54:Adela Cote RN) 55d. Packs: 0 (01/27/2020 12:54:Adela Cote RN) Onset of Labor 56a. PROM >12 Hrs: 0.70 (01/27/2020 12:54:QS system process) 56b. Precipitous Labor <3 Hrs: 7 (01/27/2020 12:54:QS system process) 56c. Prolonged Labor > 20 Hrs: 7 (01/27/2020 12:54:QS system process) 57a. Induction of Labor: N/A (01/27/2020 12:54:Joy Moran RN) 57c. Non-Vertex Presentation A: Vertex (01/27/2020 12:54:Joy Moran RN) 57d. Steroids - Lung Mat: Full Course; > 24 Hours before Delivery (01/27/2020 12:54:Joy Moran RN) 57d. Steroids - Lung Mat: Celestone 12mg IM - Dose 1 (04/19/2020 01:52:Adela Cote RN) 57d. Steroids - Lung Mat: Imminent Delivery (01/27/2020 12:54:Joy Moran RN) 57e. Antibiotics During Labor: 04/19/2020 01:52 (01/27/2020 12:54:Joy Moran RN) 57g. Moderate/Heavy Meconium: Clear (01/27/2020 12:54:Joy Moran RN) 57h. Intolerance of Labor: N/A (01/27/2020 12:54:Joy Moran RN) : N/A (01/27/2020 12:54:Joy Moran RN) 57i. Epidural/Spinal Anesthesia: Epidural (01/27/2020 12:54:Joy Moran RN) Method of Delivery 58a. Forceps - Unsuccessful A: N/A (01/27/2020 12:54:Joy Moran RN) 58b. Vacuum - Unsuccessful A: N/A (01/27/2020 12:54:Joy Moran RN) 58c. Presentation at 58c. Presentation at - A : Vertex (01/27/2020 12:54:Joy Moran RN) 58c. Presentation at - A : N/A (01/27/2020 12:54:Joy Moran RN) 58c. Presentation at - A : Cephalic (01/27/2020 12:54:Joy Moran RN) Final Route and Method of Del 58d. Baby A Route/Delivery: Vaginal (04/19/2020 02:42:Joy Moran RN) 58e. Trial of Labor Attempted: No (01/27/2020 12:54:Joy Moran RN) 58e. Trial of Labor Attempted A: N/A (01/27/2020 12:54:Joy Moran RN) 58e. Trial of Labor Attempted B: N/A (01/27/2020 12:54:Joy Moran RN) Maternal Morbidity 59b. 3rd or 4th Degree Lacs: None (01/27/2020 12:54:Va Lao MD ([facility])) Birthweight Baby A: 3149 (01/27/2020 12:54:Adela Cote RN) 60a. Pounds : 6 (01/27/2020 12:54:QS system process) 60b. Ounces: 15 (01/27/2020 12:54:QS system process) 61. GA at Delivery Baby A: 36.5 (01/27/2020 12:54:Joy Moran RN) : Late - 34- 36.6 Weeks (01/27/2020 12:54:QS system process) 62a. 5 Minute Baby A: 9 (01/27/2020 12:54:QS system process)
[2020-04-19 04:47] LABS: CHLAM PCR NOT DETECTED (NOT DETECT)
[2020-04-19] MEDS ORDERED: ACETAMINOPHEN WITH CODEINE #3 TABLET ONE (05:06)
[2020-04-19] MEDS ORDERED: IBUPROFEN 800 MG TABLET ONE (05:07)
[2020-04-19] MEDS: IBUPROFEN 800 MG TABLET PO SCH ×3 (05:07→21:56)
[2020-04-19] MEDS: ACETAMINOPHEN WITH CODEINE #3 TABLET PO PRN ×4 (05:08→22:18)
[2020-04-19] MEDS ORDERED: PENICILLIN G POTASSIUM 2,500,000 UNIT in DEXTROSE 5%-WATER 50 ML IV SCH (05:30)
[2020-04-19] MEDS: SENNOSIDES/DOCUSATE 8.6-50 MG 1 EACH TABLET PO SCH (10:12)
[2020-04-19] MEDS: FERROUS SULFATE 325 MG TABLET PO SCH ×2 (10:12→18:47)
[2020-04-19] MEDS: PRENATAL VITAMIN W DHA CAPSULE PO SCH (10:12)
[2020-04-19] MEDS: FAMOTIDINE 20 MG TABLET PO SCH ×2 (10:12→21:57)
[2020-04-19] MEDS: DOCUSATE SODIUM 100 MG CAPSULE PO SCH ×2 (10:12→18:47)
--- NOTE | 2020-04-19 10:31 | PDOC PROGRESS REPORT ---
Subjective-OB Progress Note for:: 04/19/20 Subjective: sitting up in bed, c/o of problems with bladder, just up to BR and voided, scant bleeding, breast and bottle feeding, family at BS Physical Exam (OB) Vital Signs: Temp Pulse Resp BP Pulse Ox 98.6 F 86 18 126/77 H 99 04/19/20 07:31 04/19/20 07:31 04/19/20 07:31 04/19/20 07:31 04/19/20 07:31 Intake & Output 04/18/20 04/19/20 04/20/20 06:59 06:59 06:59 Output Total 800 1400 Balance -800 -1400 Weight 65 kg - PIH/Pre-Eclampsia Headache: Absent Epigastric Pain: No Visual Changes: No - Maternal Morbidity 59. Maternal Morbidity (serious complications experinced by the mother associated with labor and delivery: None of the above - Lochia Lochia Amount: Small 10-25 ml Lochia Color: Rubra/Red - Abdomen Description: Soft, Round Hernia Present: No Fundal Description: Firm, Midline Fundal Height: u/u - u/2 Objective-Diagnostic Laboratory: 04/18/20 23:36 04/18/20 23:36 04/18/20 04/18/20 04/18/20 23:36 23:36 23:36 WBC 9.3 RBC 3.94 Hgb 12.6 Hct 34.5 L MCV 88 MCH 31.9 MCHC 36.4 H RDW 13.0 Plt Count 264 Seg Neutrophils % 65.1 Sodium 134.4 L Potassium 4.0 Chloride 103 Carbon Dioxide 25 Anion Gap 6 BUN 8 Creatinine 0.48 L Est GFR ( Amer) > 60 Glucose 106 Uric Acid 4.8 Calcium 9.4 Total Bilirubin 0.4 AST 20 Alkaline Phosphatase 179 H Total Protein 6.2 L Albumin 3.5 Urine Color Urine Appearance Urine pH Ur Specific [place] Urine Protein Urine Glucose (UA) Urine Ketones Urine Blood Urine Nitrite Ur Leukocyte Esterase Blood Type O POSITIVE Antibody Screen NEGATIVE 04/18/20 23:58 WBC RBC Hgb Hct MCV MCH MCHC RDW Plt Count Seg Neutrophils % Sodium Potassium Chloride Carbon Dioxide Anion Gap BUN Creatinine Est GFR ( Amer) Glucose Uric Acid Calcium Total Bilirubin AST Alkaline Phosphatase Total Protein Albumin Urine Color YELLOW Urine Appearance SLIGHTLY-CLOUDY Urine pH 7.0 Ur Specific [place] 1.015 Urine Protein NEGATIVE Urine Glucose (UA) NEGATIVE Urine Ketones NEGATIVE Urine Blood NEGATIVE Urine Nitrite NEGATIVE Ur Leukocyte Esterase NEGATIVE Blood Type Antibody Screen Assessment and Plan(PN) - Assessment and Plan (1) Vaginal delivery Is this a current diagnosis for this admission?: Yes (3) Lupus Is this a current diagnosis for this admission?: Yes (4) Syncope Qualifiers: Syncope type: unspecified Qualified Code(s): R55 - Syncope and collapse Is this a current diagnosis for this admission?: Yes (5) delivery Is this a current diagnosis for this admission?: Yes (6) labor Qualifiers: labor trimester: third trimester Is this a current diagnosis for this admission?: Yes - Time Spent with Patient Time with patient: Less than 15 minutes Medications reviewed and adjusted accordingly: Yes - Disposition Anticipated Discharge Disposition: Home, Self Care Anticipated Discharge Timeframe: within 24 hours
[2020-04-20] MEDS: IBUPROFEN 800 MG TABLET PO SCH ×3 (05:41→21:28)
[2020-04-20 07:33] LABS: HEMOGLOBIN 12.2 g/dL (12.0-15.5); MEAN CORPUSCULAR HEMOGLOBIN 30.9 pg (27.0-33.4); MEAN CORPUSCULAR VOLUME 88 fl (80-97); PLATELET COUNT 260 10^3/uL (150-450); RED BLOOD COUNT 3.96 10^6/uL (3.72-5.28); RED CELL DISTRIBUTION WIDTH 13.4 % (11.5-14.0); WHITE BLOOD COUNT 14.3 10^3/uL (4.0-10.5)
[2020-04-20] MEDS: DOCUSATE SODIUM 100 MG CAPSULE PO SCH ×2 (09:32→17:32)
[2020-04-20] MEDS: SENNOSIDES/DOCUSATE 8.6-50 MG 1 EACH TABLET PO SCH (09:32)
[2020-04-20] MEDS: FERROUS SULFATE 325 MG TABLET PO SCH ×2 (09:32→17:32)
[2020-04-20] MEDS: FAMOTIDINE 20 MG TABLET PO SCH ×2 (09:32→21:28)
[2020-04-20] MEDS: PRENATAL VITAMIN W DHA CAPSULE PO SCH (09:38)
--- NOTE | 2020-04-20 11:17 | PDOC PROGRESS REPORT ---
Subjective-OB Progress Note for:: 04/20/20 Subjective: feeling better today, holding baby, scant bleeding, walking, voiding Physical Exam (OB) Vital Signs: Temp Pulse Resp BP Pulse Ox 97.7 F 87 18 113/72 99 04/20/20 07:40 04/20/20 07:06 04/20/20 07:06 04/20/20 07:06 04/20/20 07:06 Intake & Output 04/19/20 04/20/20 04/21/20 06:59 06:59 06:59 Intake Total 1040 Output Total 800 5650 Balance -800 -4629 Weight 65 kg - PIH/Pre-Eclampsia Clonus: Negative Headache: Absent Epigastric Pain: No Visual Changes: No - Maternal Morbidity 59. Maternal Morbidity (serious complications experinced by the mother associated with labor and delivery: None of the above - Lochia Lochia Amount: Scant < 10 ml Lochia Color: Rubra/Red - Abdomen Description: Soft Hernia Present: No Fundal Description: Firm, Midline Fundal Height: u/3 - u/4 Objective-Diagnostic Laboratory: 04/20/20 07:03 04/18/20 23:36 04/20/20 07:03 WBC 14.3 H RBC 3.96 Hgb 12.2 Hct 35.0 L MCV 88 MCH 30.9 MCHC 35.0 RDW 13.4 Plt Count 260 04/19/20 02:10 Vaginal/Anorectal Group B Streptococcus Culture - Final GROUP B BETA HEMOLYTIC STREPTOCOCCUS RECOVERED Assessment and Plan(PN) - Assessment and Plan (1) Vaginal delivery Is this a current diagnosis for this admission?: Yes (3) Lupus Is this a current diagnosis for this admission?: Yes (4) Syncope Qualifiers: Syncope type: unspecified Qualified Code(s): R55 - Syncope and collapse Is this a current diagnosis for this admission?: Yes (5) delivery Is this a current diagnosis for this admission?: Yes (6) labor Qualifiers: labor trimester: third trimester Is this a current diagnosis for this admission?: Yes - Time Spent with Patient Time with patient: Less than 15 minutes Medications reviewed and adjusted accordingly: Yes - Disposition Anticipated Discharge Disposition: Home, Self Care Anticipated Discharge Timeframe: within 24 hours
[2020-04-21] MEDS: IBUPROFEN 800 MG TABLET PO SCH (05:31)
[2020-04-21 07:54] VITALS: BP 100/63
[2020-04-21] MEDS: SENNOSIDES/DOCUSATE 8.6-50 MG 1 EACH TABLET PO SCH (09:18)
[2020-04-21] MEDS: PRENATAL VITAMIN W DHA CAPSULE PO SCH (09:18)
[2020-04-21] MEDS: FAMOTIDINE 20 MG TABLET PO SCH (09:18)
[2020-04-21] MEDS: FERROUS SULFATE 325 MG TABLET PO SCH (09:18)
[2020-04-21] MEDS: DOCUSATE SODIUM 100 MG CAPSULE PO SCH (09:18)
--- NOTE | 2020-04-21 10:45 | PDOC DISCHARGE SUMMARY ---
Impression - Admit/DC Date/PCP Admission Date/Primary Care Provider: 04/19/20 01:35 Discharge Date: 04/21/20 - Discharge Diagnosis (1) Fibromyalgia Is this a current diagnosis for this admission?: Yes (2) Lupus Is this a current diagnosis for this admission?: Yes (3) delivery Is this a current diagnosis for this admission?: Yes (4) labor Is this a current diagnosis for this admission?: Yes (5) Syncope Is this a current diagnosis for this admission?: Yes (6) Vaginal delivery Is this a current diagnosis for this admission?: Yes - Additional Information Resuscitation Status: Full Code Discharge Diet: Regular Discharge Activity: Balance Activity w/Rest, Pelvic Rest Prescriptions: Ibuprofen [Motrin 800 mg Tablet] 800 mg PO Q8HP PRN #60 tablet PRN Reason: Home Medications: No122/Iron/Folic Acid [ Multi Tablet] 1 tab PO DAILY 01/27/20 Amitriptyline HCl [Elavil 10 mg Tablet] 10 mg PO QHS 02/21/20 Ibuprofen [Motrin 800 mg Tablet] 800 mg PO Q8HP PRN #60 tablet 04/21/20 HPI Reason(s) for Admission: Onset of Labor, Labor, Medical Complications Procedures: NST Intrapartum Procedure(s): Spontaneous Vaginal Delivery Hospital Course 59. Maternal Morbidity (serious complications experinced by the mother associated with labor and delivery: None of the above Results Laboratory Results: WBC 14.3 10^3/uL (4.0-10.5) H 04/20/20 07:03 RBC 3.96 10^6/uL (3.72-5.28) 04/20/20 07:03 Hgb 12.2 g/dL (12.0-15.5) 04/20/20 07:03 Hct 35.0 % (36.0-47.0) L 04/20/20 07:03 MCV 88 fl (80-97) 04/20/20 07:03 MCH 30.9 pg (27.0-33.4) 04/20/20 07:03 MCHC 35.0 g/dL (32.0-36.0) 04/20/20 07:03 RDW 13.4 % (11.5-14.0) 04/20/20 07:03 Plt Count 260 10^3/uL (150-450) 04/20/20 07:03 Lymph % (Auto) 24.8 % (13-45) 04/18/20 23:36 [place] % (Auto) 8.9 % (3-13) 04/18/20 23:36 Eos % (Auto) 0.8 % (0-6) 04/18/20 23:36 Baso % (Auto) 0.4 % (0-2) 04/18/20 23:36 Absolute Neuts (auto) 6.0 10^3/uL (1.7-8.2) 04/18/20 23:36 Absolute Lymphs (auto) 2.3 10^3/uL (0.5-4.7) 04/18/20 23:36 Absolute Monos (auto) 0.8 10^3/uL (0.1-1.4) 04/18/20 23:36 Absolute Eos (auto) 0.1 10^3/uL (0.0-0.6) 04/18/20 23:36 Absolute Basos (auto) 0.0 10^3/uL (0.0-0.2) 04/18/20 23:36 Seg Neutrophils % 65.1 % (42-78) 04/18/20 23:36 Fetomaternal Hemorrhag 0 ML (0) 04/18/20 23:36 Kleihauer-Betke Stain NEGATIVE (NEGATIVE) 04/18/20 23:36 PT 12.8 SEC (11.4-15.4) 04/19/20 00:35 INR 0.94 04/19/20 00:35 APTT 26.2 SEC (23.5-35.8) 04/19/20 00:35 Fibrinogen 408 mg/dL (209-497) 04/19/20 00:35 Sodium 134.4 mmol/L (137-145) L 04/18/20 23:36 Potassium 4.0 mmol/L (3.6-5.0) 04/18/20 23:36 Chloride 103 mmol/L (98-107) 04/18/20 23:36 Carbon Dioxide 25 mmol/L (22-30) 04/18/20 23:36 Anion Gap 6 (5-19) 04/18/20 23:36 BUN 8 mg/dL (7-20) 04/18/20 23:36 Creatinine 0.48 mg/dL (0.52-1.25) L 04/18/20 23:36 Est GFR ( Amer) > 60 (>60) 04/18/20 23:36 Est GFR (MDRD) Non-Af > 60 (>60) 04/18/20 23:36 Glucose 106 mg/dL (75-110) 04/18/20 23:36 POC Glucose 115 mg/dL (70-110) H 04/18/20 23:06 Uric Acid 4.8 mg/dL (2.5-6.2) 04/18/20 23:36 Calcium 9.4 mg/dL (8.4-10.2) 04/18/20 23:36 Total Bilirubin 0.4 mg/dL (0.2-1.3) 04/18/20 23:36 Direct Bilirubin 0.2 mg/dL (0.0-0.4) 04/18/20 23:36 Neonat Total Bilirubin Not Reportable 04/18/20 23:36 Neonat Direct Bilirubin Not Reportable 04/18/20 23:36 Neonat Indirect Bili Not Reportable 04/18/20 23:36 AST 20 U/L (14-36) 04/18/20 23:36 ALT 7 U/L (<35) 04/18/20 23:36 Alkaline Phosphatase 179 U/L (38-126) H 04/18/20 23:36 Lactate Dehydrogenase 150 U/L (120-246) 04/18/20 23:36 Total Protein 6.2 g/dL (6.3-8.2) L 04/18/20 23:36 Albumin 3.5 g/dL (3.5-5.0) 04/18/20 23:36 Urine Color YELLOW 04/18/20 23:58 Urine Appearance SLIGHTLY-CLOUDY 04/18/20 23:58 Urine pH 7.0 (5.0-9.0) 04/18/20 23:58 Ur Specific [place] 1.015 04/18/20 23:58 Urine Protein NEGATIVE mg/dL (NEGATIVE) 04/18/20 23:58 Urine Glucose (UA) NEGATIVE mg/dL (NEGATIVE) 04/18/20 23:58 Urine Ketones NEGATIVE mg/dL (NEGATIVE) 04/18/20 23:58 Urine Blood NEGATIVE (NEGATIVE) 04/18/20 23:58 Urine Nitrite NEGATIVE (NEGATIVE) 04/18/20 23:58 Urine Bilirubin NEGATIVE (NEGATIVE) 04/18/20 23:58 Urine Urobilinogen 2.0 mg/dL (<2.0) H 04/18/20 23:58 Ur Leukocyte Esterase NEGATIVE (NEGATIVE) 04/18/20 23:58 Urine Creatinine 74.0 mg/dL (16-327) 04/18/20 23:58 Protein/Creatinin Ratio 0.1 mg/mg (0.0-0.2) 04/18/20 23:58 Urine Total Protein 10.6 mg/dL (<12) 04/18/20 23:58 Urine Ascorbic Acid NEGATIVE (NEGATIVE) 04/18/20 23:58 Urine Opiates Screen NEGATIVE 04/18/20 23:58 Urine Methadone Screen NEGATIVE 04/18/20 23:58 Ur Barbiturates Screen NEGATIVE 04/18/20 23:58 Ur Phencyclidine Scrn NEGATIVE 04/18/20 23:58 Ur Amphetamines Screen NEGATIVE 04/18/20 23:58 U Benzodiazepines Scrn NEGATIVE 04/18/20 23:58 Urine Cocaine Screen NEGATIVE 04/18/20 23:58 U Marijuana (THC) Screen NEGATIVE 04/18/20 23:58 RPR NONREACTIVE (NONREACTIVE) 04/18/20 23:36 Chlamydia DNA (PCR) NOT DETECTED (NOT DETECT) 04/19/20 02:10 HIV 1&2 Antibody Cancelled 04/20/20 07:03 N.gonorrhoeae DNA (PCR) NOT DETECTED (NOT DETECT) 04/19/20 02:10 Blood Type O POSITIVE 04/18/20 23:36 Antibody Screen NEGATIVE 04/18/20 23:36 Impressions: Obstetrics Ultrasound 04/18/20 00:00 IMPRESSION: Single live IUP as above. Nonemergent follow-up recommended. Ultrasound age 36 weeks 1 day. No sonographic evidence for placental abruption or placental lakes formation. Prominent vascularity along the posterior margin of the placenta is present copyright 2011 [employer]- All Rights Reserved Plan Plan of Treatment: Pt will be nesting as her baby is not being discharged d/t pending HIV results. Pt had early HIV test that was negative, however, her HIV test here came back as reactive, we are waiting for PCR, Quant labs to come back. I discussed with her that it could be a false postive but that even if it does come back as positive, it would not change our management as of now. I explained that she would be referred to Infectious disease specialists. Time Spent: Less than 30 Minutes
[2020-04-23 12:40] LABS: HIV-1 RNA PCR QUANT <20 copies/mL (.)
== END 2020-04-21 12:16 | disposition home or self-care (01) | DRG 805 ==
LOC: LC 22:54 → LR 04-19 01:35 → 2S 04-19 05:14
PROVIDERS: ADMIT Student in an Organized Health Care Education/Training Program; ATTEND Student in an Organized Health Care Education/Training Program
PROC: 10E0XZZ Delivery of Products of Conception, External Approach (ICD-10-PCS; principal; 2020-04-19)
DX: O60.14X0 Preterm labor third trimester with preterm delivery third trimester, not applicable or unspecified (principal); O45.93 Premature separation of placenta, unspecified, third trimester; Z37.0 Single live birth; O99.89 Other specified diseases and conditions complicating pregnancy, childbirth and the puerperium; M79.7 Fibromyalgia; M32.9 Systemic lupus erythematosus, unspecified; O99.344 Other mental disorders complicating childbirth; F32.9 Major depressive disorder, single episode, unspecified; R63.0 Anorexia; O62.2 Other uterine inertia; O62.3 Precipitate labor; R55 Syncope and collapse; Z88.6 Allergy status to analgesic agent; Z3A.36 36 weeks gestation of pregnancy
CPT/HCPCS: 1967; 36415; 76815; 80053; 80307; 81005; 82570; 82962; 83615; 84156; 84550; 85025; 85027; 85384; 85460; 85610; 85730; 86592; 86701; 86702; 86850; 86900; 86901; 87077; 87081; 87491; 87536; 87591; 88307; 94760; J0702; J2540; J2590; J2795; J3010; J3490; J7060